=== PATIENT | female | born 1945 | race Caucasian/White ===

== ENCOUNTER 2017-05-02 19:48 | Emergency (ER) | payer BC, MEDICARE ==
--- NOTE | 2017-05-02 19:56 | EDM.PDOC ---
ED HPI GENERAL MEDICAL PROBLEM - General Chief Complaint: General Stated Complaint: FELT LIKE PASSING OUT Time Seen by Provider: 05/02/17 19:55 Source of Information: Reports: Patient History Limitations: Reports: No Limitations - History of Present Illness INITIAL COMMENTS - FREE TEXT/NARRATIVE: 71 YO WF presents to ER with episode of lightheadedness. Pt reports she was standing in her kitchen tonight when she felt lightheaded. Pt states episode lasted for a few seconds and went away. Pt states she didn't need to sit down or lay down because it went away so quickly. Pt denies any chest pain, diaphoresis, nausea, headache or altered mental status. Pt states she had a similar episode 3 weeks ago but didn't have any evaluation at the time. Pt states it occurred 1 hour ago and she feels fine now. Onset: Sudden Onset Date: 05/02/17 Onset Time: 18:00 Duration: Hour(s): (1) Location: Denies: Chest Severity: Mild Worsens with: Reports: None Associated Symptoms: Reports: No Other Symptoms. Denies: Confusion, Chest Pain , Cough, Diaphoresis, Fever/Chills, Headaches, Malaise, Nausea/Vomiting, Rash, Seizure, Shortness of Breath, Syncope, Weakness - Related Data Allergies Allergy/AdvReac Type Severity Reaction Status Date / Time Latex, Natural Rubber Allergy Itching Verified 05/03/17 11:45 Home Meds: Home Meds Hydrochlorothiazide [Hydrochlorothiazide] 12.5 mg PO DAILY 10/04/14 [History] Propranolol HCl [Propranolol HCl ER] 1 tab PO DAILY 10/04/14 [History] Propranolol HCl [Propranolol] 1 tab PO DAILY 10/04/14 [History] Acetaminophen 1,000 mg PO Q8H PRN 10/05/14 [History] Ascorbic Acid [Vitamin C] 1,000 mg PO DAILY PRN 10/05/14 [History] Ca/D3/Mag/Zinc/Kadeem/Tyree/Mgbor [Caltrate 600+D3+Min Chew Tab] 2 each PO DAILY [History] Lutein/Minerals/Vit A,C & E [Ocuvite] 1 tab PO DAILY PRN 10/05/14 [History] Multivitamin with Minerals [Multiple Vitamin] 1 tab PO DAILY 10/05/14 [History] Xx Vit D3 1,000 mg PO DAILY 05/02/17 [History] Social & Family History - Tobacco Use Smoking Status *Q: Never Smoker Second Hand Smoke Exposure: No - Alcohol Use Days Per Week of Alcohol Use: 0 - Recreational Drug Use Recreational Drug Use: No - Living Situation & Occupation Living situation: Reports: ED ROS GENERAL - Review of Systems Review Of Systems: See Below Constitutional: Reports: No Symptoms HEENT: Reports: No Symptoms Respiratory: Reports: No Symptoms Cardiovascular: Reports: No Symptoms Endocrine: Reports: No Symptoms GI/Abdominal: Reports: No Symptoms : Reports: No Symptoms Musculoskeletal: Reports: No Symptoms Skin: Reports: No Symptoms Neurological: Reports: No Symptoms Psychiatric: Reports: No Symptoms Hematologic/Lymphatic: Reports: No Symptoms Immunologic: Reports: No Symptoms ED EXAM, GENERAL - Physical Exam Exam: See Below Exam Limited By: No Limitations General Appearance: Alert, WD/WN, No Apparent Distress Eye Exam: Bilateral Eye: EOMI, PERRL Nose: Normal Inspection, Normal Mucosa, No Blood Throat/Mouth: Normal Inspection, Normal Lips, Normal Teeth, Normal Gums, Normal Oropharynx, Normal Voice, No Airway Compromise Head: Atraumatic, Normocephalic Neck: Normal Inspection, Supple, Non-Tender, Full Range of Motion Respiratory/Chest: No Respiratory Distress, Lungs Clear, Normal Breath Sounds, No Accessory Muscle Use, Chest Non-Tender Cardiovascular: Normal Peripheral Pulses, Regular Rate, Rhythm, No Edema, No Gallop, No JVD, No Murmur, No Rub GI/Abdominal: Normal Bowel Sounds, Soft, Non-Tender, No Organomegaly, No Distention, No Abnormal Bruit, No Mass Back Exam: Normal Inspection, Full Range of Motion, NT Extremities: Normal Inspection, Normal Range of Motion, Non-Tender, Normal Capillary Refill, No Pedal Edema Neurological: Alert, Oriented, CN II-XII Intact, Normal Cognition, Normal Gait, Normal Reflexes, No Motor/Sensory Deficits Psychiatric: Normal Affect, Normal Mood Skin Exam: Warm, Dry, Intact, Normal Color, No Rash Lymphatic: No Adenopathy EKG INTERPRETATION EKG Date: 05/02/17 Time: 20:59 Rhythm: NSR Rate (Beats/Min): 61 [place]: Normal P-Wave: Present QRS: Normal ST-T: Normal QT: Normal Comparison: NA - No Prior EKG Course - Vital Signs Last Recorded V/S: Last Vital Signs Temp 36.5 C 05/02/17 19:50 Pulse 69 05/02/17 19:50 Resp 20 05/02/17 19:50 BP 166/92 H 05/02/17 19:50 Pulse Ox 96 05/02/17 19:50 Departure - Departure Time of Disposition: 20:19 Disposition: Home, Self-Care 01 Condition: Good Clinical Impression: Lightheadedness - Discharge Information Instructions: Near-Syncope, Holter Monitoring Referrals: Elissa Sandoval MD [Primary Care Provider] - Forms: ED Department Discharge - Assessment/Plan Assessment:: 1. lightheadedness Plan: 1. discharge home 2. follow up in clinic tomorrow for further evaluation and treatment 3. consider 2D echo/Holter monitor/cardiology evaluation as an outpatient per Dr Garcia 4. return to ER for worsening symptoms
[2017-05-02 20:25] VITALS: BP 166/92
== END 2017-05-02 20:30 | disposition home or self-care (01) ==
LOC: KA.ED 19:48
DX: R42 Dizziness and giddiness (principal); Z79.899 Other long term (current) drug therapy; Z91.040 Latex allergy status
CPT/HCPCS: 93005; 99284

== ENCOUNTER 2019-03-26 15:12 | Emergency (ER) | payer MEDICARE, BC ==
[2019-03-26 15:27] VITALS: BP 144/79; PULSE 64
--- NOTE | 2019-03-26 16:03 | EDM.PDOC ---
ED HPI GENERAL MEDICAL PROBLEM - General Chief Complaint: ENT Problem Stated Complaint: BLOODY NOSE Time Seen by Provider: 03/26/19 15:19 Source of Information: Reports: Patient, Significant Other History Limitations: Reports: No Limitations - History of Present Illness INITIAL COMMENTS - FREE TEXT/NARRATIVE: Patient presents with nosebleed from right nostril. It is mostly stopped by the time she arrived and soon stops completely in ER. She says it started a little over an hour ago. She held pressure on it for 15 minutes but not uninterrupted. She doesn't take any blood thinners or antiplatelets. She has been getting nosebleeds more frequently over the past year and always the right side. - Related Data Allergies Allergy/AdvReac Type Severity Reaction Status Date / Time Latex, Natural Rubber Allergy Itching Verified 03/26/19 15:28 Home Meds: Home Meds Hydrochlorothiazide 12.5 mg PO DAILY 10/04/14 [History] Propranolol HCl [Propranolol HCl ER] 1 tab PO DAILY 10/04/14 [History] Propranolol HCl [Propranolol] 1 tab PO DAILY 10/04/14 [History] Acetaminophen 1,000 mg PO Q8H PRN 10/05/14 [History] Ascorbic Acid [Vitamin C] 1,000 mg PO DAILY PRN 10/05/14 [History] Ca/D3/Mag/Zinc/Kadeem/Tyree/Mgbor [Caltrate 600+D3+Min Chew Tab] 2 each PO DAILY [History] Lutein/Minerals/Vit A,C & E [Ocuvite] 1 tab PO DAILY PRN 10/05/14 [History] Multivitamin with Minerals [Multiple Vitamin] 1 tab PO DAILY 10/05/14 [History] Xx Vit D3 1,000 mg PO DAILY 05/02/17 [History] Past Medical History HEENT History: Reports: Epistaxis Other HEENT History: 6-8 nose bleeds this year (2019) Cardiovascular History: Reports: Other (See Below) Other Cardiovascular History: on propanolol - Past Surgical History Other Musculoskeletal Surgeries/Procedures:: currently under care of physical thereapist for pinched nerve to neck area Social & Family History - Tobacco Use Smoking Status *Q: Never Smoker - Caffeine Use Caffeine Use: Reports: None - Recreational Drug Use Recreational Drug Use: No - Living Situation & Occupation Living situation: Reports: ED ROS ENT - Review of Systems Review Of Systems: See Below Constitutional: Denies: Fever, Chills, Malaise, Weakness HEENT: Reports: Nosebleed. Denies: Ear Discharge, Ear Pain, Throat Pain, Vision Change Respiratory: Denies: Shortness of Breath, Cough Cardiovascular: Denies: Chest Pain, Lightheadedness, Syncope Endocrine: Reports: No Symptoms GI/Abdominal: Denies: Abdominal Pain, Nausea, Vomiting : Denies: Dysuria, Flank Pain Musculoskeletal: Reports: No Symptoms Skin: Denies: Cyanosis, Jaundice, Mottled, Pallor, Diaphoresis Neurological: Denies: Confusion, Dizziness, Seizure, Syncope, Trouble Speaking, Difficulty Walking Psychiatric: Denies: Agitation, Anxiety Hematologic/Lymphatic: Denies: Anemia, Easy Bleeding ED EXAM, ENT - Physical Exam Exam: See Below Exam Limited By: No Limitations General Appearance: Alert, WD/WN, No Apparent Distress Eye Exam: Bilateral Eye: EOMI, Normal Inspection, PERRL Ears: Normal External Exam, Hearing Grossly Normal Nose: Normal Inspection, Normal Mucousa, No Blood (there was a moderate clot that she coughed up soon after arrival on display.). No: Clear Rhinorrhea, Nasal Deformity, Nasal Swelling, Nasal Tenderness, Nasal Ecchymosis, Septal Hematoma, Septal Perforation, Active Bleeding, Dried Blood Mouth/Throat: Normal Inspection, Normal Gums, Normal Lips, Normal Oropharynx, Normal Teeth. No: Bleeding Head: Atraumatic, Normocephalic Neck: Normal Inspection, Full Range of Motion Respiratory/Chest: No Respiratory Distress, Lungs Clear, Normal Breath Sounds Cardiovascular: Regular Rate, Rhythm, No Murmur Extremities: Normal Range of Motion Neurological: Alert, Oriented, Normal Cognition, No Motor/Sensory Deficits Psychiatric: Normal Affect, Normal Mood Skin: Warm, Dry, Intact, Normal Color, No Rash Course - Vital Signs Last Recorded V/S: Last Vital Signs Temp 97.3 F 03/26/19 15:21 Pulse 64 03/26/19 15:21 Resp 16 03/26/19 15:21 BP 144/79 H 03/26/19 15:21 Pulse Ox 95 03/26/19 15:21 Departure - Departure Time of Disposition: 15:58 Disposition: Home, Self-Care 01 Condition: Good Clinical Impression: Bleeding nose - Discharge Information Instructions: Nosebleed, [id number] Referrals: Radha Sandoval MD [Primary Care Provider] - Additional Instructions: 1. Use direct pressure as discussed to stop bleeding if it recurs. 2. Call ENT to set appointment for evaluation for further treatment since this has been recurring. 3. Go to clinic or ER as needed if uncontrollable bleeding develops.
== END 2019-03-26 16:15 | disposition home or self-care (01) ==
LOC: KA.ED 15:12
DX: R04.0 Epistaxis (principal); Z79.899 Other long term (current) drug therapy; Z91.040 Latex allergy status
CPT/HCPCS: 99283

== ENCOUNTER 2020-06-25 15:03 | Emergency (ER) | payer BC, MEDICARE ==
[2020-06-25] MEDS: Oxymetazoline 0.05% Nasal Spray 15 ML Bottle NAS ONE (15:20)
[2020-06-25 15:23] VITALS: BP 154/89; PULSE 61
--- NOTE | 2020-06-25 15:39 | EDM.PDOC ---
ED HPI GENERAL MEDICAL PROBLEM - General Chief Complaint: General Stated Complaint: NOSE BLEEED Time Seen by Provider: 06/25/20 15:34 History Limitations: Reports: No Limitations - History of Present Illness INITIAL COMMENTS - FREE TEXT/NARRATIVE: Patient presents to the emergency room for nosebleed for 1 hour to right nare. History of nosebleed back in April which she needed silver nitrate stick to stop it in which she followed up with ENT with a cauterized as well. She does not take any anticoagulants, she does have high blood pressure and takes blood pressure medicines. She denies any trauma or nose picking to the right nose. She does note she has had chronic rhinorrhea. Denies any taking any intranasal steroid as well. She has been applying direct pressure for approximately 1 hour with a head tilt forward. No other concerns. - Related Data Allergies Allergy/AdvReac Type Severity Reaction Status Date / Time Latex, Natural Rubber Allergy Itching Verified 03/26/19 15:28 Home Meds: Home Meds Hydrochlorothiazide 12.5 mg PO DAILY 10/04/14 [History] Propranolol HCl [Propranolol HCl ER] 1 tab PO DAILY 10/04/14 [History] Propranolol HCl [Propranolol] 1 tab PO DAILY 10/04/14 [History] Acetaminophen 1,000 mg PO Q8H PRN 10/05/14 [History] Ascorbic Acid [Vitamin C] 1,000 mg PO DAILY PRN 10/05/14 [History] Ca/D3/Mag/Zinc/Kadeem/Tyree/Mgbor [Caltrate 600+D3+Min Chew Tab] 2 each PO DAILY 10/05/14 [History] Lutein/Minerals/Vit A,C & E [Ocuvite] 1 tab PO DAILY PRN 10/05/14 [History] Multivitamin with Minerals [Multiple Vitamin] 1 tab PO DAILY 10/05/14 [History] Xx Vit D3 1,000 mg PO DAILY 05/02/17 [History] Past Medical History HEENT History: Reports: Epistaxis Other HEENT History: 6-8 nose bleeds this year (2019) Cardiovascular History: Reports: Other (See Below) Other Cardiovascular History: on propanolol - Past Surgical History Other Musculoskeletal Surgeries/Procedures:: currently under care of physical thereapist for pinched nerve to neck area Social & Family History - Caffeine Use Caffeine Use: Reports: None - Living Situation & Occupation Living situation: Reports: ED ROS GENERAL - Review of Systems Review Of Systems: Comprehensive ROS is negative, except as noted in HPI. HEENT: Reports: Nosebleed, Rhinitis (chronic runny nose) Hematologic/Lymphatic: Reports: No Symptoms. Denies: Easy Bleeding ED EXAM, GENERAL - Physical Exam Exam: See Below General Appearance: Alert, WD/WN, No Apparent Distress Nose: Normal Inspection, Normal Mucosa, Nasal Drainage, Other (epistaxis to the right anterior naris.) Throat/Mouth: Normal Inspection, Normal Oropharynx, Other (trace blood at the posterior oropharynx) Head: Atraumatic, Normocephalic Neck: Normal Inspection, Supple Neurological: Oriented Skin Exam: Warm, Dry, Intact Course - Vital Signs Last Recorded V/S: Last Vital Signs Temp 98.1 F 06/25/20 15:20 Pulse 61 06/25/20 15:20 Resp 18 06/25/20 15:20 BP 154/89 H 06/25/20 15:20 Pulse Ox 96 06/25/20 15:20 - Orders/Labs/Meds Meds: Medications Discontinued Medications Generic Name Dose Route Start Last Admin Trade Name Jose PRN Reason Stop Dose Admin Oxymetazoline HCl Confirm 06/25/20 15:14 Afrin Original 0.05% Nasal Chandler Administered 06/25/20 15:15 Dose 15 ml .ROUTE .STK-MED ONE - Re-Assessments/Exams Free Text/Narrative Re-Assessment/Exam: 06/25/20 15:37 hemostasis achieved on arrival. I did have the nurse place Afrin on a cottonball in place in the right anterior nare. After 10 minutes I removed it and there was no bleeding no signs of blood clot into the right nose. She did cough up some blood clots likely due to from the nosebleed. There is no active bleeding. This was anterior nosebleed was resolved with direct pressure and Afrin. No need to the silver nitrate at this time patient lives [place] few blocks away she understands the bleeding returns she will try direct pressure if that does not help I will cauterize it with a silver nitrate stick. Departure - Departure Time of Disposition: 15:34 Disposition: Home, Self-Care 01 Condition: Good Clinical Impression: Epistaxis - Discharge Information *PRESCRIPTION DRUG MONITORING PROGRAM REVIEWED*: No *COPY OF PRESCRIPTION DRUG MONITORING REPORT IN PATIENT NUNU: No Instructions: Nosebleed, Adult Referrals: Radha Sandoval MD [Primary Care Provider] - Sepsis Event Note (ED) - Evaluation Sepsis Screening Result: No Definite Risk - Focused Exam Vital Signs: Vital Signs Temp Pulse Resp BP Pulse Ox 06/25/20 15:20 98.1 F 61 18 154/89 H 96
[2020-06-25] MEDS: Oxymetazoline 0.05% Nasal Spray 15 ML Bottle ONE (16:00)
== END 2020-06-25 15:45 | disposition home or self-care (01) ==
LOC: KA.ED 15:03
DX: R04.0 Epistaxis (principal); Z91.040 Latex allergy status; Z79.899 Other long term (current) drug therapy
CPT/HCPCS: 30901; 99283; A9270

== ENCOUNTER 2020-08-07 11:00 | Emergency (ER) | payer MEDICARE, OTHER ==
--- NOTE | 2020-08-07 12:22 | EDM.PDOC ---
ED HPI GENERAL MEDICAL PROBLEM - General Chief Complaint: General Stated Complaint: HIGH BLOOD PRESSURE?? Time Seen by Provider: 08/07/20 11:48 Source of Information: Reports: Patient History Limitations: Reports: No Limitations - History of Present Illness INITIAL COMMENTS - FREE TEXT/NARRATIVE: Patient presents with concern about her blood pressure. She had an annual physical exam 3 weeks ago and her HCTZ 12.5 was stopped at that time due to slight elevations in kidney function. She recently acquired a blood pressure home kwame and has been checking several times a day at the request of her provider and will be following up next week for evaluation of pressure control. She has also had a couple nosebleeds in the past few weeks and wonders if they are indicative of elevated blood pressure. Her numerous readings from home over the past week or so have ranged from 99-161 systolically and 60-88 diastolically. The higher readings were usually rechecks 1-3 minutes after an initial check of 130/68 for example, which was alarming to her since she usually runs 102-108/60-70. - Related Data Allergies Allergy/AdvReac Type Severity Reaction Status Date / Time Latex, Natural Rubber Allergy Itching Verified 08/07/20 11:16 Home Meds: Home Meds Propranolol HCl [Propranolol HCl ER] 1 tab PO DAILY 10/04/14 [History] Propranolol HCl [Propranolol] 1 tab PO DAILY 10/04/14 [History] Acetaminophen 500 mg PO Q8H PRN 10/05/14 [History] Ca/D3/Mag/Zinc/Kadeem/Tyree/Mgbor [Caltrate 600+D3+Min Chew Tab] 2 each PO DAILY 10/05/14 [History] Lutein/Minerals/Vit A,C & E [Ocuvite] 1 tab PO DAILY PRN 10/05/14 [History] Multivitamin with Minerals [Multiple Vitamin] 1 tab PO DAILY 10/05/14 [History] Xx Vit D3 1,000 mg PO DAILY 05/02/17 [History] Past Medical History HEENT History: Reports: Epistaxis Other HEENT History: 6-8 nose bleeds this year (2019) Cardiovascular History: Reports: Other (See Below) Other Cardiovascular History: on propanolol - Past Surgical History Other Musculoskeletal Surgeries/Procedures:: currently under care of physical thereapist for pinched nerve to neck area Social & Family History - Tobacco Use Tobacco Use Status *Q: Never Tobacco User - Caffeine Use Caffeine Use: Reports: None - Recreational Drug Use Recreational Drug Use: No - Living Situation & Occupation Living situation: Reports: ED ROS GENERAL - Review of Systems Review Of Systems: See Below Constitutional: Denies: Fever, Chills, Malaise, Weakness HEENT: Denies: Ear Pain, Nosebleed (not in last few days), Throat Pain, Vertigo, Vision Change Respiratory: Denies: Shortness of Breath, Cough Cardiovascular: Denies: Chest Pain, Lightheadedness, Syncope Endocrine: Denies: Fatigue GI/Abdominal: Denies: Abdominal Pain, Diarrhea, Nausea, Vomiting : Denies: Dysuria, Flank Pain Musculoskeletal: Denies: Neck Pain, Shoulder Pain, Arm Pain, Back Pain, Hand Pain Skin: Denies: Cyanosis, Jaundice, Mottled, Pallor, Diaphoresis Neurological: Denies: Confusion, Dizziness, Headache, Seizure, Syncope, Trouble Speaking, Difficulty Walking Psychiatric: Denies: Agitation, Anxiety ED EXAM, GENERAL - Physical Exam Exam: See Below Exam Limited By: No Limitations General Appearance: Alert, WD/WN, No Apparent Distress Eye Exam: Bilateral Eye: EOMI, Normal Inspection, PERRL Ears: Normal External Exam, Hearing Grossly Normal Nose: Normal Inspection, No Blood Throat/Mouth: Normal Inspection, Normal Lips, Normal Voice, No Airway Compromise Head: Atraumatic, Normocephalic Neck: Normal Inspection, Full Range of Motion Respiratory/Chest: No Respiratory Distress, Lungs Clear, Normal Breath Sounds, No Accessory Muscle Use Cardiovascular: Regular Rate, Rhythm, No Murmur GI/Abdominal: Soft, Non-Tender, No Organomegaly, No Distention Back Exam: Normal Inspection, Full Range of Motion. No: CVA Tenderness (L), CVA Tenderness (R) Extremities: Normal Inspection, Normal Range of Motion Neurological: Alert, Oriented, Normal Cognition, No Motor/Sensory Deficits Psychiatric: Normal Affect, Normal Mood Skin Exam: Warm, Dry, Intact, Normal Color, No Rash Course - Vital Signs Last Recorded V/S: Last Vital Signs Temp 98.1 F 08/07/20 11:05 Pulse 67 08/07/20 12:00 Resp 18 08/07/20 12:00 BP 150/92 H 08/07/20 12:00 Pulse Ox 99 08/07/20 12:00 - Re-Assessments/Exams Free Text/Narrative Re-Assessment/Exam: 08/07/20 12:25 We discussed for several minutes the findings today and the typical pathology of hypertension and hypotension. I reassured her that her blood pressure numbers currently aren't any acute concern but she should still follow up next week with her provider for evaluation. She was relieved to hear that there isn't any imminent danger for her due to these BP levels. I feel that anxiety is likely contributing somewhat to her hypertensive episodes, especially with the fact that her pressures are usually higher with the second or third check within a few minutes. Last BP was 125/80. Patient discharged to home in stable condition. Departure - Departure Time of Disposition: 12:14 Disposition: Home, Self-Care 01 Condition: Good Clinical Impression: Mild systolic hypertension - Discharge Information Instructions: Hypertension, Adult, [id number] Referrals: Radha Sandoval MD [Primary Care Provider] - Additional Instructions: Drink 8 cups of water daily. Follow up as scheduled with your PCP next week for evaluation of your blood pressure. Return to ER as needed. Sepsis Event Note (ED) - Evaluation Sepsis Screening Result: No Definite Risk - Focused Exam Vital Signs: Vital Signs Temp Pulse Resp BP Pulse Ox 08/07/20 12:00 67 18 150/92 H 99 08/07/20 11:45 62 18 157/81 H 99 08/07/20 11:30 59 L 18 150/83 H 99 08/07/20 11:17 63 18 159/83 H 100 08/07/20 11:05 98.1 F 66 18 156/95 H 99
[2020-08-07 14:24] VITALS: BP 125/80; PULSE 64
== END 2020-08-07 12:30 | disposition home or self-care (01) ==
LOC: KA.ED 11:00
DX: I10 Essential (primary) hypertension (principal)
CPT/HCPCS: 99283; 99284

== ENCOUNTER 2023-03-11 06:35 | Emergency (ER) | payer MEDICARE, OTHER ==
[2023-03-11] MEDS ORDERED: Oxymetazoline 0.05% Nasal Spray 15 ML Bottle ONE (07:45)
[2023-03-11] MEDS ORDERED: Lidocaine 4% Top Soln 50 ML Bottle ONE (07:45)
[2023-03-11] MEDS ORDERED: Lidocaine 4% Top Soln 50 ML Bottle MUCMEM ONE (07:48)
[2023-03-11] MEDS ORDERED: Oxymetazoline 0.05% Nasal Spray 15 ML Bottle NAS ONE (07:49)
[2023-03-11 08:46] VITALS: BP 139/75; PULSE 57
== END 2023-03-11 08:53 | disposition home or self-care (01) ==
LOC: KA.ED 06:35
DX: R04.0 Epistaxis (principal); Z91.040 Latex allergy status; Z91.09 Other allergy status, other than to drugs and biological substances
CPT/HCPCS: 99283; A9270-GY

== ENCOUNTER 2023-03-15 08:42 | Emergency (ER) | payer MEDICARE, OTHER ==
[2023-03-15 09:33] VITALS: BP 161/82; PULSE 61
== END 2023-03-15 10:14 | disposition home or self-care (01) ==
LOC: KA.ED 08:42
DX: R04.0 Epistaxis (principal); I10 Essential (primary) hypertension; Z79.899 Other long term (current) drug therapy; Z91.040 Latex allergy status; Z91.048 Other nonmedicinal substance allergy status
CPT/HCPCS: 30903; 99283

== ENCOUNTER 2024-01-18 11:51 | Emergency (ER) | payer MEDICARE, OTHER ==
[2024-01-18] MEDS ORDERED: Sodium Chloride 0.9% 10 ML Syringe FLUSH PRN (11:59)
[2024-01-18 12:06] LABS: EOSINOPHILS ABSOLUTE AUTO 0.03 10^3/uL (0.10-0.30); EOSINOPHILS PERCENT AUTO 0.8 % (1.0-3.0); HEMATOCRIT 43.2 % (37.0-47.0); HEMOGLOBIN 13.9 g/dL (12.0-16.0); LYMPHOCYTES ABSOLUTE AUTO 1.19 10^3/uL (1.00-4.00); LYMPHOCYTES PERCENT AUTO 31.3 % (20.0-40.0); MEAN CORPUSCULAR HEMOGLOBIN 30.2 pg (27.0-31.0); MEAN CORPUSCULAR HGB CONC 32.2 g/dL (32.0-36.0); MEAN CORPUSCULAR VOLUME 93.7 fL (82.0-92.0); MEAN PLATELET VOLUME 10.6 fL (7.4-10.4); MONOCYTES ABSOLUTE AUTO 0.58 10^3/uL (0.10-0.80); MONOCYTES PERCENT AUTO 15.3 % (2.0-8.0); NEUTROPHILS PERCENT AUTO 52.6 % (50.0-70.0); PLATELET COUNT,PLT 163 10^3/uL (150-400); RED BLOOD CELL COUNT 4.61 10^6/uL (3.80-5.50); RED CELL DISTRIBUTION WIDTH 12.7 % (11.5-14.5)
[2024-01-18 12:18] LABS: ALANINE AMINOTRANSFERASE,ALT 37 U/L (14-63); ALBUMIN 3.93 g/dL (3.40-5.00); ALKALINE PHOSPHATASE 77 U/L (46-116); ANION GAP 10.5 mmol/L (5-15); ASPARTATE AMNIOTRANSFERASE,AST 31 U/L (15-37); BILIRUBIN TOTAL 0.7 mg/dL (0.2-1.0); BLOOD UREA NITROGEN,BUN 30 mg/dL (7-18); CARBON DIOXIDE,CO2 32.8 mmol/L (21.0-32.0); CHLORIDE,CL 103 mmol/L (98-107); CREATININE 1.05 mg/dL (0.51-1.17); GLUCOSE RANDOM 95 mg/dL (70-140); POTASSIUM,K 4.3 mmol/L (3.5-5.1); PROTEIN TOTAL,TP 6.9 g/dL (6.4-8.2); SODIUM,NA 142 mmol/L (136-145)
[2024-01-18 12:22] VITALS: PULSE 62
[2024-01-18 12:27] LABS: ESTIMATED GFR 54 mL/min (>=60)
[2024-01-18 12:38] LABS: PROTHROMBIN TIME 10.4 SEC (9.3-12.2); PTT,PARTIAL THROMBOPLSTIN TIME 22.5 SEC (23.3-34.9)
[2024-01-18 12:58] VITALS: BP 159/72
== END 2024-01-18 13:25 ==
LOC: KA.ED 11:51
DX: I63.9 Cerebral infarction, unspecified (principal); I10 Essential (primary) hypertension; Z79.899 Other long term (current) drug therapy; Z91.048 Other nonmedicinal substance allergy status; Z91.040 Latex allergy status
CPT/HCPCS: 70450; 80053; 82947; 84484; 85025; 85610; 85730; 99285

== ENCOUNTER 2024-08-16 22:44 | Emergency (ER) | payer MEDICARE, OTHER ==
[2024-08-16] MEDS: Lidocaine 1% with EPINEPHrine 1:100,000 20 ML MDV ONE (23:29)
[2024-08-16] MEDS: Lidocaine 1% with EPINEPHrine 1:100,000 20 ML MDV INJECT ONE (23:35)
[2024-08-17 02:05] VITALS: PULSE 59
[2024-08-17 02:07] VITALS: BP 140/66
== END 2024-08-17 00:06 | disposition home or self-care (01) ==
LOC: KA.ED 22:44
DX: I83.023 Varicose veins of left lower extremity with ulcer of ankle (principal); L97.329 Non-pressure chronic ulcer of left ankle with unspecified severity; I10 Essential (primary) hypertension; Z91.040 Latex allergy status; Z91.048 Other nonmedicinal substance allergy status; Z79.899 Other long term (current) drug therapy
CPT/HCPCS: 12001; 99283; 99284; J2004

== ENCOUNTER 2024-12-03 22:44 | Emergency (ER) | payer MEDICARE, OTHER ==
[2024-12-03 23:06] VITALS: BP 144/76; PULSE 72
== END 2024-12-03 23:41 | disposition home or self-care (01) ==
LOC: KA.ED 22:44
DX: I83.92 Asymptomatic varicose veins of left lower extremity (principal); Z79.01 Long term (current) use of anticoagulants; I10 Essential (primary) hypertension; Z91.040 Latex allergy status; Z91.048 Other nonmedicinal substance allergy status; Z79.899 Other long term (current) drug therapy
CPT/HCPCS: 99283; 99284

== ENCOUNTER 2025-01-29 07:42 | Emergency (ER) | payer MEDICARE ==
[2025-01-29 07:53] VITALS: BP 155/95; PULSE 77
[2025-01-29 08:12] LABS: BASOPHILS ABSOLUTE AUTO 0.00 10^3/uL (0.00-0.10); BASOPHILS PERCENT AUTO 0.0 % (0.0-1.0); EOSINOPHILS ABSOLUTE AUTO 0.07 10^3/uL (0.10-0.30); EOSINOPHILS PERCENT AUTO 1.7 % (1.0-3.0); IMMATURE GRAN ABSOLUTE AUTO 0.00 10^3/uL (0.00-0.04); IMMATURE GRAN PERCENT AUTO 0.0 % (0.0-0.4); LYMPHOCYTES ABSOLUTE AUTO 0.89 10^3/uL (1.00-4.00); LYMPHOCYTES PERCENT AUTO 22.2 % (20.0-40.0); MEAN PLATELET VOLUME 10.4 fL (7.4-10.4); MONOCYTES ABSOLUTE AUTO 0.48 10^3/uL (0.10-0.80); MONOCYTES PERCENT AUTO 12.0 % (2.0-8.0); NEUTROPHILS ABSOLUTE AUTO 2.57 10^3/uL (2.50-7.00); NEUTROPHILS PERCENT AUTO 64.1 % (50.0-70.0); PLATELET COUNT,PLT 171 10^3/uL (150-400); RED BLOOD CELL COUNT 4.81 10^6/uL (3.80-5.50); RED CELL DISTRIBUTION WIDTH 13.7 % (11.5-14.5); WHITE BLOOD CELL COUNT,WBC 4.01 10^3/uL (5.00-10.00)
== END 2025-01-29 09:20 | disposition home or self-care (01) ==
LOC: KA.ED 07:44
DX: R04.0 Epistaxis (principal); I10 Essential (primary) hypertension; Z91.040 Latex allergy status; Z91.048 Other nonmedicinal substance allergy status; Z79.01 Long term (current) use of anticoagulants; Z79.899 Other long term (current) drug therapy
CPT/HCPCS: 30905; 36415; 85025; 99283-25

== ENCOUNTER 2025-02-08 07:45 | Emergency (ER) | payer MEDICARE ==
[2025-02-08] MEDS ORDERED: Sodium Chloride 0.9% 10 ML Syringe FLUSH PRN (08:13)
[2025-02-08] MEDS: LORazepam 2 MG/ML SDV IVPUSH ONE (08:18)
[2025-02-08 08:19] LABS: BASOPHILS ABSOLUTE AUTO 0.01 10^3/uL (0.00-0.10); BASOPHILS PERCENT AUTO 0.2 % (0.0-1.0); EOSINOPHILS ABSOLUTE AUTO 0.04 10^3/uL (0.10-0.30); EOSINOPHILS PERCENT AUTO 0.8 % (1.0-3.0); IMMATURE GRAN ABSOLUTE AUTO 0.01 10^3/uL (0.00-0.04); IMMATURE GRAN PERCENT AUTO 0.2 % (0.0-0.4); LYMPHOCYTES ABSOLUTE AUTO 1.22 10^3/uL (1.00-4.00); LYMPHOCYTES PERCENT AUTO 25.5 % (20.0-40.0); MEAN PLATELET VOLUME 10.3 fL (7.4-10.4); MONOCYTES ABSOLUTE AUTO 0.64 10^3/uL (0.10-0.80); MONOCYTES PERCENT AUTO 13.4 % (2.0-8.0); NEUTROPHILS ABSOLUTE AUTO 2.87 10^3/uL (2.50-7.00); NEUTROPHILS PERCENT AUTO 59.9 % (50.0-70.0); PLATELET COUNT,PLT 182 10^3/uL (150-400); RED BLOOD CELL COUNT 4.85 10^6/uL (3.80-5.50); RED CELL DISTRIBUTION WIDTH 13.7 % (11.5-14.5); WHITE BLOOD CELL COUNT,WBC 4.79 10^3/uL (5.00-10.00)
[2025-02-08 08:34] LABS: BLOOD UREA NITROGEN,BUN 26.0 mg/dL (7-18); CARBON DIOXIDE,CO2 30.1 mmol/L (21.0-32.0); CHLORIDE,CL 106.0 mmol/L (98-107); CREATININE 0.99 mg/dL (0.51-1.17); EST CRCL DRUG DOSING (CG) 35.04 mL/min; ESTIMATED GFR 57.0 mL/min (>=60); GLUCOSE RANDOM 120.0 mg/dL (70-140); POTASSIUM,K 5.1 mmol/L (3.5-5.1); SODIUM,NA 143.0 mmol/L (136-145)
[2025-02-08] MEDS: Labetalol 100 MG/20 ML MDV IVPUSH ONE (09:19)
[2025-02-08 11:17] VITALS: BP 157/100; PULSE 89
== END 2025-02-08 10:15 | disposition home or self-care (01) ==
LOC: KA.ED 07:45
DX: R04.0 Epistaxis (principal); I10 Essential (primary) hypertension; Z91.040 Latex allergy status; Z91.048 Other nonmedicinal substance allergy status; Z79.899 Other long term (current) drug therapy; Z79.01 Long term (current) use of anticoagulants
CPT/HCPCS: 30901; 30905; 36415; 80048; 85025; 96374; 96375; 99283; 99284-25; J1920; J2060

== ENCOUNTER 2025-02-10 01:43 | Emergency (ER) | payer MEDICARE ==
[2025-02-10] MEDS: Sodium Chloride 0.9% 10 ML Syringe FLUSH PRN (02:08)
[2025-02-10 02:21] LABS: BASOPHILS ABSOLUTE AUTO 0.01 10^3/uL (0.00-0.10); BASOPHILS PERCENT AUTO 0.1 % (0.0-1.0); EOSINOPHILS ABSOLUTE AUTO 0.02 10^3/uL (0.10-0.30); EOSINOPHILS PERCENT AUTO 0.2 % (1.0-3.0); IMMATURE GRAN ABSOLUTE AUTO 0.00 10^3/uL (0.00-0.04); IMMATURE GRAN PERCENT AUTO 0.0 % (0.0-0.4); LYMPHOCYTES ABSOLUTE AUTO 1.41 10^3/uL (1.00-4.00); LYMPHOCYTES PERCENT AUTO 15.2 % (20.0-40.0); MEAN PLATELET VOLUME 10.0 fL (7.4-10.4); MONOCYTES ABSOLUTE AUTO 1.24 10^3/uL (0.10-0.80); MONOCYTES PERCENT AUTO 13.3 % (2.0-8.0); NEUTROPHILS ABSOLUTE AUTO 6.61 10^3/uL (2.50-7.00); NEUTROPHILS PERCENT AUTO 71.2 % (50.0-70.0); PLATELET COUNT,PLT 157 10^3/uL (150-400); RED BLOOD CELL COUNT 4.56 10^6/uL (3.80-5.50); RED CELL DISTRIBUTION WIDTH 13.7 % (11.5-14.5); WHITE BLOOD CELL COUNT,WBC 9.29 10^3/uL (5.00-10.00)
[2025-02-10 02:40] LABS: ALANINE AMINOTRANSFERASE,ALT 23 U/L (14-63); ASPARTATE AMNIOTRANSFERASE,AST 29 U/L (15-37); BILIRUBIN TOTAL 1.1 mg/dL (0.2-1.0); BLOOD UREA NITROGEN,BUN 28 mg/dL (7-18); CARBON DIOXIDE,CO2 28.5 mmol/L (21.0-32.0); CHLORIDE,CL 103 mmol/L (98-107); CREATININE 1.03 mg/dL (0.51-1.17); ESTIMATED GFR 55 mL/min (>=60); GLUCOSE RANDOM 123 mg/dL (70-140); POTASSIUM,K 4.1 mmol/L (3.5-5.1); PROTEIN TOTAL,TP 6.8 g/dL (6.4-8.2); SODIUM,NA 140 mmol/L (136-145)
[2025-02-10 02:48] LABS: INR 1.1 (0.9-1.1); PTT,PARTIAL THROMBOPLSTIN TIME 23.6 SEC (21.6-32.4)
[2025-02-10 05:46] VITALS: BP 149/84; PULSE 91
== END 2025-02-10 03:23 | disposition home or self-care (01) ==
LOC: KA.ED 01:43
DX: G45.9 Transient cerebral ischemic attack, unspecified (principal); F41.9 Anxiety disorder, unspecified; I10 Essential (primary) hypertension; Z91.048 Other nonmedicinal substance allergy status; Z91.040 Latex allergy status; Z79.899 Other long term (current) drug therapy; Z79.01 Long term (current) use of anticoagulants
CPT/HCPCS: 70450; 80053; 82947; 84484; 85025; 85610; 85730; 93010; 99284; 99285

== ENCOUNTER 2025-04-23 12:37 | Emergency (ER) | payer MEDICARE ==
[2025-04-23 12:53] LABS: BASOPHILS ABSOLUTE AUTO 0.01 10^3/uL (0.00-0.10); BASOPHILS PERCENT AUTO 0.2 % (0.0-1.0); EOSINOPHILS ABSOLUTE AUTO 0.03 10^3/uL (0.10-0.30); EOSINOPHILS PERCENT AUTO 0.7 % (1.0-3.0); IMMATURE GRAN ABSOLUTE AUTO 0.00 10^3/uL (0.00-0.04); IMMATURE GRAN PERCENT AUTO 0.0 % (0.0-0.4); LYMPHOCYTES ABSOLUTE AUTO 1.16 10^3/uL (1.00-4.00); LYMPHOCYTES PERCENT AUTO 26.2 % (20.0-40.0); MEAN PLATELET VOLUME 10.5 fL (7.4-10.4); MONOCYTES ABSOLUTE AUTO 0.54 10^3/uL (0.10-0.80); MONOCYTES PERCENT AUTO 12.2 % (2.0-8.0); NEUTROPHILS ABSOLUTE AUTO 2.68 10^3/uL (2.50-7.00); NEUTROPHILS PERCENT AUTO 60.7 % (50.0-70.0); PLATELET COUNT,PLT 157 10^3/uL (150-400); RED BLOOD CELL COUNT 4.69 10^6/uL (3.80-5.50); RED CELL DISTRIBUTION WIDTH 13.2 % (11.5-14.5); WHITE BLOOD CELL COUNT,WBC 4.42 10^3/uL (5.00-10.00)
[2025-04-23 13:06] LABS: ALANINE AMINOTRANSFERASE,ALT 28.0 U/L (14-63); ASPARTATE AMNIOTRANSFERASE,AST 30.0 U/L (15-37); BILIRUBIN TOTAL 1.0 mg/dL (0.2-1.0); BLOOD UREA NITROGEN,BUN 34.0 mg/dL (7-18); CARBON DIOXIDE,CO2 29.5 mmol/L (21.0-32.0); CHLORIDE,CL 105.0 mmol/L (98-107); CREATININE 1.15 mg/dL (0.51-1.17); EST CRCL DRUG DOSING (CG) 29.68 mL/min; GLUCOSE RANDOM 85.0 mg/dL (70-140); POTASSIUM,K 3.9 mmol/L (3.5-5.1); PROTEIN TOTAL,TP 6.6 g/dL (6.4-8.2); SODIUM,NA 142.0 mmol/L (136-145)
[2025-04-23 13:07] LABS: ESTIMATED GFR 48.0 mL/min (>=60)
[2025-04-23] MEDS ORDERED: Sodium Chloride 0.9% 50 ML SDV FLUSH ONE (13:21)
[2025-04-23] MEDS: Iopamidol 755 Mg/ML 100 ML Bottle IV ONE (14:02)
[2025-04-24 08:33] VITALS: BP 143/78; PULSE 73
== END 2025-04-23 16:05 | disposition home or self-care (01) ==
LOC: KA.ED 12:37
DX: R93.1 Abnormal findings on diagnostic imaging of heart and coronary circulation (principal); I10 Essential (primary) hypertension; Z91.048 Other nonmedicinal substance allergy status; Z91.040 Latex allergy status; Z79.899 Other long term (current) drug therapy
CPT/HCPCS: 36415; 71275; 80053; 85025; 93010; 96360; 99284; 99285-25; J7030; Q9967